=== PATIENT | male | born 1980 | race Caucasian/White ===

== ENCOUNTER 2019-01-05 16:55 | Emergency (ER) | payer MEDICAID ==
[~2019-01-05] VITALS: Ht 172.7 cm; Wt 61.4 kg
[2019-01-05] MEDS ORDERED: SULF1TAB49 PO (19:45)
[2019-01-05] MEDS ORDERED: CEPH-572 PO (19:45)
[2019-01-05 19:56] VITALS: BP 145/72
== END 2019-01-05 19:58 | disposition home or self-care (01) ==
LOC: ER 16:56
DX: S50.311A Abrasion of right elbow, initial encounter (principal); L03.113 Cellulitis of right upper limb; F17.200 Nicotine dependence, unspecified, uncomplicated; W18.30XA Fall on same level, unspecified, initial encounter; Y93.89 Activity, other specified; Y92.89 Other specified places as the place of occurrence of the external cause; Y99.9 Unspecified external cause status
CPT/HCPCS: 73080; 99283

== ENCOUNTER 2019-07-01 22:01 | Emergency (ER) | payer MEDICAID ==
[~2019-07-01] VITALS: Ht 172.7 cm; Wt 61.4 kg
[2019-07-01 22:07] VITALS: BP 130/89
[2019-07-01] MEDS ORDERED: ERYT1OIN6 RIGHTEYE (23:15)
[2019-07-01] MEDS ORDERED: CIPR2.5D18 RIGHTEYE (23:15)
== END 2019-07-01 23:20 | disposition home or self-care (01) ==
LOC: ER 22:03
DX: H10.31 Unspecified acute conjunctivitis, right eye (principal); R51 Headache; Z79.2 Long term (current) use of antibiotics
CPT/HCPCS: 99283